=== PATIENT | male | born 1980 | race African-American/Black ===

== ENCOUNTER 2023-06-05 09:14 | Emergency (ER) | payer SELFPAY ==
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
[2023-06-05 10:30] VITALS: BP 114/84; TEMP 98.7; O2SAT 100
== END 2023-06-05 10:11 | disposition home or self-care (01) ==
LOC: ER 09:14
DX: S16.1XXA Strain of muscle, fascia and tendon at neck level, initial encounter (principal)
CPT/HCPCS: 72125; 99282